=== PATIENT | male | born 1940 | race Caucasian/White ===

== ENCOUNTER 2020-07-05 22:21 | Emergency (ER) | payer MEDICARE, OTHER ==
[~2020-07-05] VITALS: Ht 177.8 cm; Wt 73.6 kg
--- NOTE | 2020-07-05 23:15 | RAD ---
EXAM: XR CHEST 1V 07/05/2020 10:56 PM CLINICAL INDICATION: Palpitations COMPARISON: None TECHNIQUE: AP view of the chest FINDINGS: The heart and mediastinum are normal. Lungs are well-expanded and clear. No consolidatio n, pleural effusion, or pneumothorax. Pulmonary vascularity is normal. The thoracic skeleton is int act. IMPRESSION: No acute cardiopulmonary abnormality. Electronically signed by: Alix Begum MD (07/05/2020 11:13 PM) [id number]
--- NOTE | 2020-07-05 23:26 | PHYS DOC ---
Past History Past Medical History: A-Fib, Hypertension, Hyperthyroid, Hypothyroid Past Surgical History: Other Additional Past Surgical Histo: arm surgery, sinus surgery Alcohol Use: Occasionally Adult General Chief Complaint Chief Complaint: RAPID HEART RATE HPI HPI Patient is a 79-year-old male with a past medical history of A. fib on anticoagulation who presents with a chief complaint of palpitations. States over the last couple of months he will have these episodes that last a few minutes where it feels like his heart is fluttering. States that he had 1 earlier in the evening that lasted a couple of minutes. Denies any lightheadedness or dizziness, chest pain, shortness of breath, abdominal pain, nausea, vomiting with the episode. States it is just some mild fluttering and he is got no other symptoms. States he is taking all of his medications as prescribed. States that here in the emergency department he feels well and is having no floaters or any other symptoms. Denies any recent travel, traumas, illnesses, ill contacts. States he is eating and drinking normally. States he is making urine and stool normally for him with no blood in either. Review of Systems Review of Systems Review of systems otherwise unremarkable except noted in HPI. Allergies Allergies Allergies Coded Allergies Type Severity Reaction Last Updated Verified codeine Allergy Unknown 07/05/20 Yes Physical Exam Physical Exam Constitutional: Well developed, well nourished, no acute distress, non-toxic appearance. [] HENT: Normocephalic, atraumatic, bilateral external ears normal, oropharynx moist, no oral exudates, nose normal. [] Eyes: conjunctiva normal, no discharge. [] Neck: Normal range of motion, Cardiovascular:Heart rate regular rhythm, no murmur [] Lungs & Thorax: Bilateral breath sounds clear to auscultation [] Abdomen: soft, no tenderness, no masses, no pulsatile masses. [] Skin: Warm, dry, no erythema, no rash. [] Extremities: No tenderness, no cyanosis, no clubbing, ROM intact, no edema. [] Neurologic: Alert and oriented X 3, normal motor function, normal sensory function, no focal deficits noted. [] Psychologic: Affect normal, judgement normal, mood normal. [] Current Patient Data Vital Signs Vital Signs Date Time Temp Pulse Resp B/P (MAP) Pulse Ox O2 Delivery O2 Flow Rate FiO2 07/05/20 22:39 97.6 70 15 169/91 (117) 98 Room Air EKG EKG [] Radiology/Procedures Radiology/Procedures [] Heart Score Risk Factors: Risk Factors: DM, Current or recent (<one month) smoker, HTN, HLP, family history of CAD, obesity. Risk Scores: Risk Factors: DM, Current or recent (<one month) smoker, HTN, HLP, family history of CAD, obesity. Course & Med Decision Making Course & Med Decision Making Patient is a 79-year-old male who presents with palpitations earlier in the day but asymptomatic here in the ED. Vital signs not concerning. Physical exam noted above. EKG noted above and not concerning. Troponin not concerning. Patient asymptomatic in the emergency department with normal vital signs. Patient stated he most likely just wanted some reassurance as he is kind of a hypochondriac. Discussed all findings with patient advised to call his physician first thing in the morning to discuss his ED visit and concerns and set up a post ER follow-up visit as soon as possible. Gave strict return precautions to the ED. Patient grateful, verbalized understanding and agreed with plan of discharge. [] Dragon Disclaimer Dragon Disclaimer This electronic medical record was generated, in whole or in part, using a voice recognition dictation system. Departure Departure: Impression: Primary Impression: Palpitation Disposition: 01 DC HOME SELF CARE/HOMELESS Condition: GOOD Referrals: JABIER CORTES MD (PCP) Patient Instructions: Palpitations, [id number] Additional Instructions: Please read the attached information. Please continue take all your medications as prescribed. Please call your primary care physician first thing in the morning to discuss ED visit and set up a follow-up as soon as possible. Please come back to the ED with any new or concerning symptoms as discussed. GUSTAVO MCCLELLAN MD Jul 05, 2020 23:26
[2020-07-05 23:35] VITALS: BP 144/81
[2020-07-05 23:57] LABS: BASO % 0 % (0-3); EOS # 0.1 x10^3/uL (0.0-0.7); EOS % 3 % (0-3); HEMATOCRIT 40.1 % (39.0-53.0); HEMOGLOBIN 13.5 g/dL (13.0-17.5); LYMPH # 1.1 x10^3/uL (1.0-4.8); LYMPH % 34 % (24-48); MEAN CORPUSCULAR HEMOGLOBIN 34 pg (25-35); MEAN CORPUSCULAR HGB CONC 34 g/dL (31-37); MEAN CORPUSCULAR VOLUME 101 fL (79-100); MONO # 0.5 x10^3/uL (0.0-1.1); MONO % 14 % (0-9); NEUT # 1.6 x10^3uL (1.8-7.7); NEUT % 49 % (31-73); PLATELET COUNT 94 x10^3/uL (140-400); RED BLOOD COUNT 3.98 x10^6/uL (4.30-5.70); RED CELL DISTRIBUTION WIDTH 13.5 % (11.5-14.5); WHITE BLOOD COUNT 3.3 x10^3/uL (4.0-11.0)
[2020-07-06 00:05] LABS: CALCIUM 8.8 mg/dL (8.5-10.1); GFR 72.1; POTASSIUM 4.1 mmol/L (3.5-5.1)
[2020-07-06 00:11] LABS: ALBUMIN 3.7 g/dL (3.4-5.0); ALBUMIN/GLOBULIN RATIO 1.2 (1.0-1.7); TOTAL BILIRUBIN 0.6 mg/dL (0.2-1.0); TOTAL PROTEIN 6.8 g/dL (6.4-8.2)
--- NOTE | 2020-07-06 03:24 | EKG ---
[address] [address] Test Date: 2020-07-05 Test Time: 22:37:32 Pat Name: JOSE LUIS BARTH Department: Room: Gender: M [employer]: : 1940 Requested By: GUSTAVO MCCLELLAN Order Number: [id number] Reading MD: Measurements Intervals [place] Rate: 77 P: 44 NE: 160 QRS: 38 QRSD: 88 T: 43 QT: 380 QTc: 432 Interpretive Statements SINUS RHYTHM NORMAL ECG RI6.02 No previous ECG available for comparison
== END 2020-07-06 00:39 | disposition home or self-care (01) ==
LOC: ER 22:21
DX: R00.2 Palpitations (principal); I48.91 Unspecified atrial fibrillation; I10 Essential (primary) hypertension; E05.90 Thyrotoxicosis, unspecified without thyrotoxic crisis or storm; E03.9 Hypothyroidism, unspecified; Z88.5 Allergy status to narcotic agent
CPT/HCPCS: 36415; 71045; 80053; 84484; 85025; 93005; 99285-25

== ENCOUNTER 2021-07-28 12:56 | Emergency (ER) | payer MEDICARE, OTHER ==
[~2021-07-28] VITALS: Ht 177.8 cm; Wt 73.6 kg
[2021-07-28 13:02] VITALS: BP 157/85
--- NOTE | 2021-07-28 13:23 | PHYS DOC ---
Past History Past Medical History: A-Fib, Hypertension, Hyperthyroid, Hypothyroid Additional Past Medical Histor: stage 4 esophageal cancer. chemo. Past Surgical History: Other Additional Past Surgical Histo: arm surgery, sinus surgery Alcohol Use: Occasionally General Adult EDM: Chief Complaint: NEURO SYMPTOMS/DEFICITS HPI: HPI: 80-year-old male presents with left-sided weakness. The patient had his first round of chemo within the last several days. He started to have left-sided upper and lower extremity weakness 2 days ago. The patient talked to his doctor today and they recommended he immediately come to the emergency room because they are worried that he has had a stroke. Patient is able to walk. He has had his left leg collapse under him, but denies any injuries from this. He also states his left arm does not seem to "do what I tell it to do". He is moving all 4 extremities. Patient denies headache, fever, chills, chest pain, shortness of breath. Review of Systems: Review of Systems: Constitutional: Denies fever or chills Eyes: Denies change in visual acuity HENT: Denies nasal congestion or sore throat Respiratory: Denies cough or shortness of breath Cardiovascular: Denies chest pain or edema GI: Denies abdominal pain, nausea, vomiting, bloody stools or diarrhea : Denies dysuria Musculoskeletal: Denies back pain or joint pain Integument: Denies rash Neurologic: Left upper and lower extremity weakness Endocrine: Denies polyuria or polydipsia Lymphatic: Denies swollen glands Psychiatric: Denies depression or anxiety Allergies: Allergies: Allergies Coded Allergies Type Severity Reaction Last Updated Verified codeine Allergy Unknown 07/05/20 Yes Physical Exam: PE: Constitutional: Well developed, well nourished, no acute distress, non-toxic appearance. [] HENT: Normocephalic, atraumatic, bilateral external ears normal, oropharynx mois t, no oral exudates, nose normal. [] Eyes: PERRLA, EOMI, conjunctiva normal, no discharge. [] Neck: Normal range of motion, no tenderness, supple, no stridor. [] Cardiovascular: Heart rate 67, regular rhythm, no murmur [] Lungs & Thorax: Bilateral breath sounds clear to auscultation [] Abdomen: Bowel sounds normal, soft, no tenderness, no masses, no pulsatile masses. [] Skin: Warm, dry, no erythema, no rash. [] Back: No tenderness, no CVA tenderness. [] Extremities: No tenderness, no cyanosis, no clubbing, ROM intact, no edema. [] Neurologic: Alert and oriented X 3, see NIH stroke scale [] Psychologic: Affect normal, judgement normal, mood normal. [] Current Patient Data: Labs: Laboratory Tests Test 07/28/21 13:10 Glucose (Fingerstick) 147 mg/dL (70-99) H Vital Signs: Vital Signs Date Time Temp Pulse Resp B/P (MAP) Pulse Ox O2 Delivery O2 Flow Rate FiO2 07/28/21 13:02 97.7 68 18 157/85 (109) 98 Room Air EKG: EKG: Sinus rhythm, rate 67, normal axis, no ST elevation or depression. [] Radiology/Procedures: Radiology/Procedures: [] Impressions: PQRS Compliance Statement: One or more of the following individualized dose reduction techniques were utilized for this examination: 1. Automated exposure control 2. Adjustment of the mA and/or kV according to patient size 3. Use of iterative reconstruction technique CT HEAD WITHOUT CONTRAST History: Reason: left side weakness 2 days / Spl. Instructions: / History: Comparison: None. Technique: Axial images are obtained of the head from the skull base through the vertex without IV contrast. Findings: No mass-effect, midline shift, extra-axial fluid collection, hemorrhage, or obvious acute infarction is identified. Basilar cisterns are patent. The ventricles and sulci are prominent, consistent with generalized cerebral atrophy. Bone windows demonstrate no acute calvarial abnormality. Mild mucosal thickening of the bilateral ethmoid and left maxillary sinuses. 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 The maxillary sinuses are incompletely imaged. Mastoid air cells are well aerated. IMPRESSION: No acute intracranial abnormality. Electronically signed by: Miguel Figueroa MD (07/28/2021 1:28 PM) [id number] DICTATED AND SIGNED BY: MIGUEL FIGUEROA MD DATE: 07/28/21 1322 CC: HILLARY ANTHONY DO; JABIER CORTES MD ~MTH0 0 XR CHEST 1V Clinical Indication: Reason: weakness / Spl. Instructions: / History: Comparison: AP chest July 05, 2020. Findings: There is right chest Port-A-Cath, tip in distal SVC. Atherosclerotic aortic arc h. The cardiomediastinal silhouette is normal. Lungs are clear. There is no pneumothorax. No pleural effusion is appreciated. No acute bone abnormality. IMPRESSION: No acute cardiopulmonary process. Electronically signed by: Miguel Figueroa MD (07/28/2021 1:30 PM) [id number] DICTATED AND SIGNED BY: MIGUEL FIGUEROA MD DATE: 07/28/21 1329 CC: HILLARY ANTHONY DO; JABIER CORTES MD ~MTH0 0 Heart Score: C/O Chest Pain: N/A Risk Factors: Risk Factors: DM, Current or recent (<one month) smoker, HTN, HLP, family history of CAD, obesity. Risk Scores: Score 0 - 3: 2.5% MACE over next 6 weeks - Discharge Home Score 4 - 6: 20.3% MACE over next 6 weeks - Admit for Clinical Observation Score 7 - 10: 72.7% MACE over next 6 weeks - Early Invasive Strategies Course & Med Decision Making: Course & Med Decision Making Pertinent Labs and Imaging studies reviewed. (See chart for details) The patient's initial NIH stroke scale is 1 for left arm drift. His EKG is unremarkable. His head CT is negative for acute findings. His chest x-ray is negative for acute findings. The patient's labs are abnormal with a low white blood cell count of 3.7 and hemoglobin 11.8. See labs for more details. The patient's numbness is more shoulder than left arm. His official stroke evaluation is unremarkable. This is most likely a side effect of his chemo treatment. Patient has esophageal cancer. He does not meet any admission criteria at this time. He is stable for discharge. [] Dragon Disclaimer: Dragon Disclaimer: This electronic medical record was generated, in whole or in part, using a voice recognition dictation system. NIH Stroke Scale: NIH Stroke Scale Response (Comments) Value Level of Consciousness: 0 Alert/Responsive 0 LOC Questions: 0 Answers both correctly 0 LOC Commands: 0 Performs both tasks 0 Best Gaze: 0 Normal 0 Visual: 0 No visual loss 0 Facial Palsy: 0 Normal, symmetrical 0 Motor - Left Arm 1 Drifts, but can hold 1 Motor - Right Arm 0 No drift 0 Motor - Left Leg 0 No drift 0 Motor: Right Leg 0 No drift 0 Limb Ataxia: 0 Absent 0 Sensory: 0 No loss 0 Best Language: 0 Normal 0 Dysathria: 0 Normal 0 Extinction and Inattention: 0 Normal 0 Total 1 Departure Departure: Impression: Primary Impression: Left arm weakness Additional Impression: Adverse effect of chemotherapy Disposition: 01 HOME / SELF CARE / HOMELESS Condition: STABLE Referrals: JABIER CORTES MD (PCP) Patient Instructions: Weakness, [id number] HILLARY ANTHONY DO Jul 28, 2021 13:23
--- NOTE | 2021-07-28 13:31 | RAD ---
PQRS Compliance Statement: One or more of the following individualized dose reduction techniques were utilized for this examinat ion: 1. Automated exposure control 2. Adjustment of the mA and/or kV according to patient size 3. Use of iterative reconstruction technique CT HEAD WITHOUT CONTRAST History: Reason: left side weakness 2 days / Spl. Instructions: / History: Comparison: None. Technique: Axial images are obtained of the head from the skull base through the vertex without IV co ntrast. Findings: No mass-effect, midline shift, extra-axial fluid collection, hemorrhage, or obvious acute infarction is identified. Basilar cisterns are patent. The ventricles and sulci are prominent, consistent with generalized cerebral atrophy. Bone windows demonstrate no acute calvarial abnormality. Mild mucosal thickening of the bilateral ethmoid and left maxillary sinuses. 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 The maxillary sinuses are incompletely imaged. Mastoid air cells are well aerated . IMPRESSION: No acute intracranial abnormality. Electronically signed by: Miguel Andre MD (07/28/2021 1:28 PM) [id number]
--- NOTE | 2021-07-28 13:33 | RAD ---
XR CHEST 1V Clinical Indication: Reason: weakness / Spl. Instructions: / History: Comparison: AP chest July 05, 2020. Findings: There is right chest Port-A-Cath, tip in distal SVC. Atherosclerotic aortic arch. The cardiomediastin al silhouette is normal. Lungs are clear. There is no pneumothorax. No pleural effusion is appreciate d. No acute bone abnormality. IMPRESSION: No acute cardiopulmonary process. Electronically signed by: Miguel Andre MD (07/28/2021 1:30 PM) [id number]
[2021-07-28] MEDS ORDERED: PROP150T2 PO (14:12)
[2021-07-28] MEDS ORDERED: GABA300C8 PO (14:12)
[2021-07-28] MEDS ORDERED: LEVO50TA PO (14:12)
[2021-07-28] MEDS ORDERED: ASPI-482 PO (14:12)
[2021-07-28] MEDS ORDERED: CYAN100072 PO (14:12)
[2021-07-28] MEDS ORDERED: METO25TA2 PO (14:12)
[2021-07-28] MEDS ORDERED: POTA500T5 PO (14:12)
[2021-07-28] MEDS ORDERED: ROSU5TAB12 PO (14:12)
[2021-07-28 14:28] LABS: BASO % 1 % (0-3); EOS # 0.2 x10^3/uL (0.0-0.7); EOS % 4 % (0-3); HEMATOCRIT 33.6 % (39.0-53.0); HEMOGLOBIN 11.6 g/dL (13.0-17.5); LYMPH % 26 % (24-48); MEAN CORPUSCULAR HEMOGLOBIN 35 pg (25-35); MEAN CORPUSCULAR HGB CONC 35 g/dL (31-37); MEAN CORPUSCULAR VOLUME 101 fL (79-100); MONO # 0.3 x10^3/uL (0.0-1.1); MONO % 7 % (0-9); NEUT # 2.3 x10^3uL (1.8-7.7); NEUT % 62 % (31-73); PLATELET COUNT 69 x10^3/uL (140-400); RED BLOOD COUNT 3.33 x10^6/uL (4.30-5.70); RED CELL DISTRIBUTION WIDTH 13.2 % (11.5-14.5); WHITE BLOOD COUNT 3.7 x10^3/uL (4.0-11.0)
[2021-07-28 14:32] LABS: CALCIUM 8.1 mg/dL (8.5-10.1); GFR 71.9; POTASSIUM 3.9 mmol/L (3.5-5.1)
[2021-07-28 14:38] LABS: ALBUMIN/GLOBULIN RATIO 1.4 (1.0-1.7); TOTAL BILIRUBIN 0.8 mg/dL (0.2-1.0); TOTAL PROTEIN 5.2 g/dL (6.4-8.2)
--- NOTE | 2021-07-29 01:35 | EKG ---
[address] [address] Test Date: 2021-07-28 Test Time: 13:10:57 Pat Name: JOSE LUIS BARTH Department: Room: Gender: M [employer]er: [place] : 1940 Requested By: HILLARY ANTHONY Order Number: [id number] Reading MD: Nicolás Cormier Measurements Intervals [place] Rate: 67 P: 49 TN: 164 QRS: 49 QRSD: 86 T: 66 QT: 380 QTc: 404 Interpretive Statements SINUS RHYTHM Electronically Signed On 07-30-2021 18:45:44 CUSTODIAN by Nicolás Cormier
== END 2021-07-28 15:26 | disposition home or self-care (01) ==
LOC: ER 12:56
DX: R53.1 Weakness (principal); T45.1X5A Adverse effect of antineoplastic and immunosuppressive drugs, initial encounter; I48.91 Unspecified atrial fibrillation; I10 Essential (primary) hypertension; E03.9 Hypothyroidism, unspecified; E05.90 Thyrotoxicosis, unspecified without thyrotoxic crisis or storm; C15.9 Malignant neoplasm of esophagus, unspecified; Y92.89 Other specified places as the place of occurrence of the external cause
CPT/HCPCS: 36415; 70450; 71045; 80053; 82947; 84484; 85025; 93005; 99285

== ENCOUNTER 2021-07-29 16:55 | Emergency (ER) | payer MEDICARE, OTHER ==
[~2021-07-29] VITALS: Ht 177.8 cm; Wt 73.6 kg
[~2021-07-29 16:55] MED LIST: ASPI-482 PO; CYAN100072 PO; GABA300C8 PO; LEVO50TA PO; METO25TA2 PO; POTA500T5 PO; PROP150T2 PO; ROSU5TAB12 PO
--- NOTE | 2021-07-29 18:47 | PHYS DOC ---
Past History Past Medical History: A-Fib, Hypertension, Hyperthyroid, Hypothyroid Additional Past Medical Histor: stage 4 esophageal cancer. chemo. (MARY PALOMARES APRN) Past Surgical History: Other Additional Past Surgical Histo: arm surgery, sinus surgery (MARY PALOMARES APRN) Alcohol Use: None (MARY PALOMARES APRN) General Adult EDM: Chief Complaint: WEAKNESS/GENERALIZED HPI: HPI: Patient is an 80-year-old male that presents today with left arm left leg weakness. Patient was seen yesterday here in the emergency department and was evaluated for a stroke, he was discharged in the emergency department to have him follow-up with his primary care physician or his oncologist. Patient and said they called the oncologist today and the nurse practitioner in the oncology office recommended he go back to the emergency department for further evaluation for his left arm weakness. According to the patient left arm weakness and left leg weakness started on Sunday, he has sustained 2 falls on Sunday when he said his left leg gave out suddenly, he says one time he was in the restroom just standing and he is leg just would not hold him anymore and he went to the ground. Patient did start chemotherapy this week as well and does have a right upper chest wall Port-A-Cath. 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 Patient currently is using a cane, and the said that is new as of Sunday. (MARY PALOMARES APRN) Review of Systems: Review of Systems: Constitutional: Denies fever or chills Eyes: Denies change in visual acuity HENT: Denies nasal congestion or sore throat Respiratory: Denies cough or shortness of breath Cardiovascular: Denies chest pain or edema GI: Denies abdominal pain, nausea, vomiting, bloody stools or diarrhea : Denies dysuria Musculoskeletal: Denies back pain or joint pain Integument: Denies rash Neurologic: Left arm left leg weakness denies headache, sensory changes Endocrine: Denies polyuria or polydipsia Lymphatic: Denies swollen glands Psychiatric: Denies depression or anxiety (MARY PALOMARES APRN) Current Medications: Current Meds: Current Medications Medications (Trade) Dose Ordered Sig/Liya Start Time Stop Time Status Last Admin Dose Admin Iohexol (Omnipaque 350 Mg/ml) 100 ml 1X ONCE 07/29/21 18:45 07/29/21 18:46 UNV (MARY PALOMARES COMPLEX CARE NURSE) Allergies: Allergies: Allergies Coded Allergies Type Severity Reaction Last Updated Verified codeine Allergy Unknown 07/05/20 Yes (MARY PALOMARES APRN) Physical Exam: PE: Constitutional: Well developed, well nourished, no acute distress, non-toxic appearance. [] HENT: Normocephalic, no crepitus, step-offs, or deformity noted with palpation of the skull, bilateral external ears normal, oropharynx moist, no oral exudates, nose normal. [] Eyes: PERRLA, EOMI, conjunctiva normal, no discharge. [] Neck: Normal range of motion, no tenderness, supple, no stridor, no midline tenderness noted Cardiovascular:Heart rate regular rhythm, no murmur [] Lungs & Thorax: Bilateral breath sounds clear to auscultation, right upper chest wall Port-A-Cath in place Abdomen: Bowel sounds normal, soft, no tenderness, no masses, no pulsatile masses. [] Skin: Warm, dry, no erythema, no rash. [] Back: No tenderness, no CVA tenderness. [] Extremities: Patient does have decreased strength in the left arm, patient does have periodic weakness to the left leg patient did ambulate with a cane and does appear slow when ambulating, sensory is intact bilaterally dorsalis pedis pulses are 1+, multiple bruises noted over the arms, no crepitus or deformity noted, radial pulses 2+. Neurologic: Alert and oriented X 3, normal motor function, normal sensory function, no focal deficits noted. [] Psychologic: Affect normal, judgement normal, mood normal. [] (MARY PALOMARES COMPLEX CARE NURSE) Current Patient Data: Labs: Laboratory Tests Test 07/29/21 18:23 Prothrombin Time 9.8 SEC (9.4-11.4) Prothrombin Time INR 0.9 (0.9-1.1) Activated Partial Thromboplast Time 24 SEC (23-33) Vital Signs: Vital Signs Date Time Temp Pulse Resp B/P (MAP) Pulse Ox O2 Delivery O2 Flow Rate FiO2 07/29/21 17:54 98.2 59 16 154/80 (104) 99 Room Air (MARY PALOMARES APRN) EKG: EKG: [] (MARY PALOMARES APRN) Radiology/Procedures: Radiology/Procedures: [REASON: left arm weakness PROCEDURE: CT ANGIOGRAPHY HEAD AND NECK CT HEAD/BRAIN WO, CTA HEAD AND NECK W/WO CONTRAST History:Reason: left arm weakness / Spl. Instructions: / History: Technique: Noncontrast head CT was performed in correlation with this exam. After bolus of intravenous contrast, volumetric CT data acquisition was acquired of the head and neck. Multiplanar reconstruction images to include MIP and 3-D reconstruction images are submitted. Exposure: One or more of the following individualized dose reduction techniques were utilized for this examination: 1. Automated exposure control 2. Adjustment of the mA and/or kV according to patient size 3. Use of iterative reconstruction technique. Comparison: None Any determination of stenosis is based on NASCET criteria. Noncontrast CT head: No intracranial hemorrhage. No mass effect. No hydrocephalus. Mild brain parenchymal volume loss. Mild foci of decreased attenuation within the hemispheric white matter, most often due to chronic microvascular ischemia, unchanged. Small chronic right frontal cortical infarct, unchanged. Imaged orbits are unremarkable. Imaged paranasal sinuses and mastoid air cells are clear. Left inferior frontal osteoma, unchanged. Head CTA: ICA: Moderate calcified plaque within the paraclinoid internal carotid arteries with moderate right and mild left narrowing. No occlusion. MCA: No stenosis, occlusion or aneurysm. THEODORA: No stenosis, occlusion or aneurysm. [employer] ADMINISTRATOR: No stenosis, occlusion or aneurysm. Basilar artery: No stenosis, occlusion or aneurysm. Distal vertebral arteries: Mild narrowing of the distal vertebral arteries. No occlusion. CT angiogram neck: Aortic arch: Moderate atherosclerotic plaque within the aorta. Common carotid arteries: Severe greater than 90 percent stenosis of the right distal common carotid artery just prior to the carotid bifurcation with near occlusion. Internal carotid arteries: Severe atheromatous plaque within the right carotid bifurcation. Focal 60 percent narrowing of the right proximal internal carotid artery due to calcified plaque. No occlusion. Moderate atheromatous plaque within the left carotid bifurcation. 50 percent narrowing of the left proximal internal carotid artery. External carotid arteries: Patent Vertebral arteries: Severe narrowing of the right vertebral artery origin. Moderate to severe narrowing of the right proximal vertebral artery. Mild to moderate narrowing of the right vertebral artery origin. Imaged lung apices are unremarkable. Soft tissues appear normal. Bones: Advanced cervical spondylosis. Chronic deformity of C2. Multilevel canal narrowing most prominent C5-C6. Multilevel neuroforaminal narrowing. Impression: Noncontrast head CT: 1. No acute intracranial abnormality. CT angiograph head: 1. No intracranial arterial occlusion. 2. Bilateral paraclinoid internal carotid artery narrowing, right greater than left. CT angiogram neck: 1. High-grade narrowing to near occlusion of the right distal common carotid artery. 2. Moderate narrowing of the bilateral proximal internal carotid arteries, right greater than left. 3. Severe narrowing of the right vertebral artery origin. 4. Advanced cervical spondylosis. Electronically signed by: Yossi Gongora DO (07/29/2021 8:54 PM) [facility] DICTATED AND SIGNED BY: YOSSI GONGORA DO DATE: 07/29/212032 CC: JABIER CORTES MD; MARY PALOMARES APRN ~MTH0 0 ] (MARY PALOMARES APRN) Heart Score: C/O Chest Pain: No Risk Factors: Risk Factors: DM, Current or recent (<one month) smoker, HTN, HLP, family history of CAD, obesity. Risk Scores: Score 0 - 3: 2.5% MACE over next 6 weeks - Discharge Home Score 4 - 6: 20.3% MACE over next 6 weeks - Admit for Clinical Observation Score 7 - 10: 72.7% MACE over next 6 weeks - Early Invasive Strategies (MARY PALOMARES APRN) Course & Med Decision Making: Course & Med Decision Making Pertinent Labs and Imaging studies reviewed. (See chart for details) 2114 call the [facility] for transfer of this patient for further evaluation of his right carotid artery stenosis, I spoke to Dr.Maali BADILLO neurologist, he is agreeable to accepting this patient as a transfer to the intensive care unit for further management of his near occluded carotid artery. Spoke with patient and at the bedside and did inform him of the need for transfer and he is agreeable to transfer. Patient's NIH continues to be 2, blood pressure is 153/91, heart rate is 68. Patient will be kept n.p.o. at this time. (MARY PALOMARES APRN) Dragon Disclaimer: Dragon Disclaimer: This electronic medical record was generated, in whole or in part, using a voice recognition dictation system. 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% Disposition: 02 SHORT TERM HOSPITAL Condition: GUARDED Referrals: JABIER CORTES MD (PCP) NIHSS - ED NIH Stroke Scale: NIH Stroke Scale Response (Comments) Value Level of Consciousness: 0 Alert/Responsive 0 LOC Questions: 0 Answers both correctly 0 LOC Commands: 0 Performs both tasks 0 Best Gaze: 0 Normal 0 Visual: 0 No visual loss 0 Facial Palsy: 0 Normal, symmetrical 0 Motor - Left Arm 1 Drifts, but can hold 1 Motor - Right Arm 0 No drift 0 Motor - Left Leg 1 Drift but can hold 1 Motor: Right Leg 0 No drift 0 Limb Ataxia: 0 Absent 0 Sensory: 0 No loss 0 Best Language: 0 Normal 0 Dysathria: 0 Normal 0 Extinction and Inattention: 0 Normal 0 Total 2 Attending Signature Attending Signature I have participated in the care of this patient and I have reviewed and agree with all pertinent clinical information above including history, exam, and recommendations. (TUAN GEE MD) Dragon Disclaimer This chart was dictated in whole or in part using Voice Recognition software in a busy, high-work load, and often noisy Emergency Department environment. It may contain unintended and wholly unrecognized errors or omissions. (TUAN GEE MD) MARY PALOMARES APRN Jul 29, 2021 18:47 TUAN GEE MD Jul 31, 2021 00:48
[2021-07-29 18:48] LABS: BASO % 0 % (0-3); EOS # 0.1 x10^3/uL (0.0-0.7); EOS % 4 % (0-3); HEMATOCRIT 36.7 % (39.0-53.0); HEMOGLOBIN 12.7 g/dL (13.0-17.5); LYMPH % 29 % (24-48); MEAN CORPUSCULAR HEMOGLOBIN 35 pg (25-35); MEAN CORPUSCULAR HGB CONC 35 g/dL (31-37); MEAN CORPUSCULAR VOLUME 102 fL (79-100); MONO # 0.4 x10^3/uL (0.0-1.1); MONO % 12 % (0-9); NEUT # 1.9 x10^3uL (1.8-7.7); NEUT % 55 % (31-73); PLATELET COUNT 87 x10^3/uL (140-400); RED BLOOD COUNT 3.61 x10^6/uL (4.30-5.70); RED CELL DISTRIBUTION WIDTH 13.5 % (11.5-14.5); WHITE BLOOD COUNT 3.5 x10^3/uL (4.0-11.0)
[2021-07-29 18:51] LABS: CALCIUM 8.7 mg/dL (8.5-10.1); GFR 71.9; POTASSIUM 4.8 mmol/L (3.5-5.1)
[2021-07-29 18:58] LABS: ALBUMIN 3.4 g/dL (3.4-5.0); ALBUMIN/GLOBULIN RATIO 1.2 (1.0-1.7); TOTAL BILIRUBIN 0.8 mg/dL (0.2-1.0); TOTAL PROTEIN 6.3 g/dL (6.4-8.2)
[2021-07-29] MEDS: IOHEXOL 350 MG/ML 100 ML VIAL. IV ONE (19:18)
--- NOTE | 2021-07-29 20:57 | RAD ---
CT HEAD/BRAIN WO, CTA HEAD AND NECK W/WO CONTRAST History:Reason: left arm weakness / Spl. Instructions: / History: Technique: Noncontrast head CT was performed in correlation with this exam. After bolus of intravenou s contrast, volumetric CT data acquisition was acquired of the head and neck. Multiplanar reconstruct ion images to include MIP and 3-D reconstruction images are submitted. Exposure: One or more of the following individualized dose reduction techniques were utilized for thi s examination: 1. Automated exposure control 2. Adjustment of the mA and/or kV according to patient size 3. Use of iterative reconstruction technique. Comparison: None Any determination of stenosis is based on NASCET criteria. Noncontrast CT head: No intracranial hemorrhage. No mass effect. No hydrocephalus. Mild brain parenchymal volume loss. Mild foci of decreased attenuation within the hemispheric white m atter, most often due to chronic microvascular ischemia, unchanged. Small chronic right frontal corti vivi infarct, unchanged. Imaged orbits are unremarkable. Imaged paranasal sinuses and mastoid air cells are clear. Left inferi or frontal osteoma, unchanged. Head CTA: ICA: Moderate calcified plaque within the paraclinoid internal carotid arteries with moderate right a nd mild left narrowing. No occlusion. MCA: No stenosis, occlusion or aneurysm. THEODORA: No stenosis, occlusion or aneurysm. [employer] MEMBER: No stenosis, occlusion or aneurysm. Basilar artery: No stenosis, occlusion or aneurysm. Distal vertebral arteries: Mild narrowing of the distal vertebral arteries. No occlusion. CT angiogram neck: Aortic arch: Moderate atherosclerotic plaque within the aorta. Common carotid arteries: Severe greater than 90 percent stenosis of the right distal common carotid a rtery just prior to the carotid bifurcation with near occlusion. Internal carotid arteries: Severe atheromatous plaque within the right carotid bifurcation. Focal 60 percent narrowing of the right proximal internal carotid artery due to calcified plaque. No occlusion . Moderate atheromatous plaque within the left carotid bifurcation. 50 percent narrowing of the left proximal internal carotid artery. External carotid arteries: Patent Vertebral arteries: Severe narrowing of the right vertebral artery origin. Moderate to severe narrowi ng of the right proximal vertebral artery. Mild to moderate narrowing of the right vertebral artery o rigin. Imaged lung apices are unremarkable. Soft tissues appear normal. Bones: Advanced cervical spondylosis. Chronic deformity of C2. Multilevel canal narrowing most promin ent C5-C6. Multilevel neuroforaminal narrowing. Impression: Noncontrast head CT: 1. No acute intracranial abnormality. CT angiograph head: 1. No intracranial arterial occlusion. 2. Bilateral paraclinoid internal carotid artery narrowing, right greater than left. CT angiogram neck: 1. High-grade narrowing to near occlusion of the right distal common carotid artery. 2. Moderate narrowing of the bilateral proximal internal carotid arteries, right greater than left. 3. Severe narrowing of the right vertebral artery origin. 4. Advanced cervical spondylosis. Electronically signed by: Yossi Gongora DO (07/29/2021 8:54 PM) [facility]
[2021-07-29 21:20] VITALS: BP 153/91
== END 2021-07-29 22:56 | disposition short-term general hospital (02) ==
LOC: ER 16:55
DX: I65.21 Occlusion and stenosis of right carotid artery (principal); R53.1 Weakness; I48.91 Unspecified atrial fibrillation; I10 Essential (primary) hypertension; E03.9 Hypothyroidism, unspecified; E05.90 Thyrotoxicosis, unspecified without thyrotoxic crisis or storm; Z20.822 Contact with and (suspected) exposure to COVID-19
CPT/HCPCS: 36415; 70450; 70496; 70498; 80053; 85025; 85610; 85730; 87426; 99285; C9803; Q9967; U0003